=== PATIENT | male | born 1945 | race Caucasian/White ===

== ENCOUNTER → 2017-03-20 | Day surgery (SDC) | payer OTHER ==
[~2017-03-20] MED LIST: ACETAMINOPHEN 1000 MG/100 ML VIAL IV ONE; BALANCED SALT SOLN OPHT IRRIG 15 ML BTL ONE; BUPIVACAINE/EPINEPHRINE 0.25% PF 10 ML VIAL ONE; ENOX30P SQ; HYDR-3580 PO; LACTATED RINGER'S 1000 ML INJ 1,000 ML ONE; LIDOCAINE 1%/EPINEPHrine 1:100,000 SOLN 50 ML VIAL ONE; LOSA25TA31 PO; METF500 PO; NEOMYCIN/POLYMYXIN/BACITRACIN OINT 15 GM TUBE ONE; ONDANSETRON HCL 4 MG/2 ML VIAL IV PUSH ONE; PROPOFOL 200 MG/20 ML AMP IV ONE; TAB-TAB PO; ceFAZolin INJ 1,000 MG VIAL ONE
--- NOTE | 2017-03-20 09:49 | TN ---
cc: MORTEZA DENIS M.D. 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 PROCEDURE Wide local excision of the primary defect of 2-1/2 x 1-1/2 cm. This required the reconstruction as follows, a two advancement myocutaneous advancing tissue rearrangements from the lower and upper orbicularis myocutaneous areas to make the defect 1-1/2 x 1 cm and then I rotate a Tri-Lienberg flap from the glabella area for a total secondary defect of 4 x 2 cm. SURGEON Morteza Denis MD ANESTHESIA Total of 10 cc of 1% lidocaine with epinephrine mixed with 0.25% Marcaine on a 2:1 ratio. COMPLICATIONS None PROCEDURE He was properly consented, marked and properly anesthetized. The skin sterilized with Microcyn and sterile draping applied. Local anesthetic was infiltrated. Excision was done of this lesion located on the right medial canthal area protecting the punctum, the dacryo system as well as the canthal tendon junction. A frozen section read by Dr. Gregory showed no evidence of pathology at the margins or deep. After assuring meticulous hemostasis, I developed a plane under the orbicularis oculi muscle inferiorly and superiorly and advanced defect in order to obliterate of the upper and lower defects. That brought the defect into about a centimeter and a half in diameter. A Tri-lienberg flap was elevated and rotated into the defect inset utilizing 5-0 Monocryl suture and 5-0 fast-absorbing gut for secondary defect of 2.4 cm. Good viability of the tissue was noted at the end of the case. The patient was awakened and extubated in the operating room, transferred back to the postanesthesia care unit in stable condition. There were no complications appreciated. The patient tolerated the procedure fairly well. MD SHADI Parker/SUDHIR /9:04 AM /9:20 AM ERIK
== END | disposition home or self-care (01) ==
LOC: ESDC 06:15
PROVIDERS: ATTEND Plastic Surgery
DX: D04.11 Carcinoma in situ of skin of right eyelid, including canthus (principal)
CPT/HCPCS: 00300; 14060; 88305; 88331; J0131; J0690; J2405; J3010; J7120